=== PATIENT | male | born 1990 | race Caucasian/White ===

== ENCOUNTER 2016-10-17 17:13 | Emergency (ER) | payer MEDICAID ==
[2016-10-17 19:10] LABS: BASOPHILS 0.2 % (0-2); EOSINOPHILS 1.7 % (0-7); HEMATOCRIT 43.5 % (42.0-54.0); HEMOGLOBIN 14.7 g/dL (13.5-17.5); IMMATURE GRANULOCYTES 0.4 % (0-5); LYMPHOCYTES 28.4 % (15-50); MCH 30.2 pg (26.0-34.0); MCHC 33.8 g/dL (31.0-37.0); MCV 89.5 fL (80.0-100.0); MONOCYTES 7.1 % (2-11); NEUTROPHILS 62.2 % (40-80); PLATELET COUNT 52 10x3/uL (130-400); RBC 4.86 10x6/uL (4.20-6.10); RDW 13.8 % (11.5-14.5)
[2016-10-17 19:30] LABS: APTT 25.3 SECONDS (22.8-39.4); INR 0.9 (0.85-1.17)
[2016-10-17 19:41] LABS: ALKALINE PHOSPHATASE 70 U/L (46-116); ALT (SGPT) 31 U/L (10-68); BILIRUBIN - TOTAL 0.33 mg/dL (0.2-1.3); CALC OSMOLALITY 276 mosm/kg (275-300); CALCIUM 9.5 mg/dL (8.5-10.1); CARBON DIOXIDE 24.7 mmol/L (21.0-32.0); CHLORIDE - SERUM 100 mmol/L (98-107); CREATININE - SERUM 0.9 mg/dL (0.6-1.3); GLUCOSE 85 mg/dL (74-106); POTASSIUM - SERUM 3.5 mmol/L (3.5-5.1); PROTEIN - SERUM 7.1 g/dL (6.4-8.2); SODIUM 139 mmol/L (136-145); UREA NITROGEN 12 mg/dL (7-18); eGFR NON AFRICAN AMERICAN > 90 mL/min (90-120)
[2016-10-17 20:52] LABS: PLATELET ESTIMATE DECREASED
== END 2016-10-17 20:22 | disposition home or self-care (01) ==
LOC: D.ER 17:13
PROVIDERS: Emergency Medicine
DX: S80.01XA Contusion of right knee, initial encounter (principal); S80.11XA Contusion of right lower leg, initial encounter; W19.XXXA Unspecified fall, initial encounter; D69.1 Qualitative platelet defects; F17.200 Nicotine dependence, unspecified, uncomplicated